=== PATIENT | female | born 1985 | race Caucasian/White ===

== ENCOUNTER 2022-05-04 17:00 | Inpatient (IN) | payer SELFPAY ==
[~2022-05-04] VITALS: Ht 167.6 cm; Wt 102.6 kg
--- NOTE | 2022-05-04 17:25 | ED Respiratory ---
General Chief Complaint: Respiratory Problems Stated Complaint: SOB Nursing Triage Note: PT TO ED IN WITH C/O PAIN WITH BREATHING, CHEST PRESSURE/HEAVINESS SINCE YESTERDAY. PT REPORTS SHE WAS DX WITH CHF, HAS NOT TAKEN ANY OF HER MEDS IN MONTHS BC SHE CANNOT AFFORD THEM. DENIES SOB, COUGH, FEVER, OR ANY OTHER SX AT THIS TIME. Source: patient Exam Limitations: no limitations (SARA HARLEY APRN) History of Present Illness Date Seen by Provider: May 04, 2022 Time Seen by Provider: 17:24 Initial Comments This is a 37-year-old female who presented to the ER via POV with complaints of shortness of breath, chest pressure and heaviness since yesterday afternoon. States that she was recently discharged from one of the hospitals in [place] a couple months ago with a diagnosis of CHF. States that she is prescribed lisinopril, Lasix, possibly metoprolol but she has not taken any of these medications because she cannot afford them. She does not have a primary care provider stating she cannot afford to have 1 and she just moved to the area. She denies alcohol, illicit drug use although she does appear to be under the influence of something. She does smoke a pack per day of cigarettes, denies marijuana use. Denies any fever, chills, cough, abdominal pain, nausea, vomiting. (SARA HARLEY APRN) Allergies and Home Medications Allergies Coded Allergies: Penicillins (Verified Allergy, Unknown, 05/04/22) Patient Home Medication List Home Medication List Reviewed: Yes (SARA HARLEY APRN) Review of Systems Review of Systems Constitutional: see HPI (SARA HARLEY APRN) Past Panamuj-Psagqo-Iqyvde Hx Patient Social History Tobacco Use?: Yes Tobacco type used: Cigarettes Smoking Status: Current Everyday Smoker Use of E-Cig and/or Vaping dev: No Substance use?: No Alcohol Use?: No Pt feels they are or have been: No (SARA HARLEY APRN) Immunizations Up To Date Influenza Vaccine Up-to-Date: No; Not Current (SARA HARLEY APRN) Past Medical History Surgery/Hospitalization HX: CHF, HTN, ANEMIA (SARA HARLEY APRN) Physical Exam Vital Signs - First Documented 05/04/22 17:03 Pulse 123 Resp 22 B/P (MAP) 173/107 (129) Pulse Ox 96 O2 Delivery Nasal Cannula O2 Flow Rate 2.00 FiO2 94 (ODETTE PRITCHETT MD) Capillary Refill : (SARA HARLEY APRN) Height: '" Weight: lbs. oz. kg; 32.00 BMI Method: General Appearance: WD/WN, no apparent distress Eyes: Bilateral Eye Normal Inspection, Bilateral Eye PERRL, Bilateral Eye EOMI HEENT: PERRL/EOMI, normal ENT inspection, TMs normal, pharynx normal Neck: full range of motion, normal inspection Respiratory: lungs clear, normal breath sounds, no respiratory distress, no accessory muscle use; No respiratory distress Cardiovascular: normal peripheral pulses, regular rate, rhythm, no murmur Gastrointestinal: normal bowel sounds, non tender, soft, no organomegaly Extremities: normal range of motion, normal inspection Neurologic/Psychiatric: no motor/sensory deficits, alert, normal mood/affect, oriented x 3 Skin: normal color, warm/dry (SARA HARLEY APRN) Focused Exam Lactate Level 05/04/22 20:03: Lactic Acid Level 0.87 (ODETTE PRITCHETT MD) Lactic Acid Level Laboratory Tests Test 05/04/22 20:03 Lactic Acid Level 0.87 MMOL/L (0.50-2.00) (ODETTE PRITCHETT MD) Progress/Results/Core Measures Suspected Sepsis SIRS Temperature: Pulse: 123 Respiratory Rate: 22 Laboratory Tests 05/04/22 17:05: White Blood Count 9.7 Blood Pressure 173 /107 Mean: 129 Laboratory Tests 05/04/22 17:05: Creatinine 0.62, INR Comment 1.0, Platelet Count 348, Total Bilirubin 1.6H (SARA HARLEY APRN) Results/Orders Lab Results Laboratory Tests Test 05/04/22 17:05 05/04/22 18:30 05/04/22 20:03 Range/Units White Blood Count 9.7 4.3-11.0 10^3/uL Red Blood Count 4.78 3.80-5.11 10^6/uL Hemoglobin 9.3 L 11.5-16.0 g/dL Hematocrit 32 L 35-52 % Mean Corpuscular Volume 68 L 80-99 fL Mean Corpuscular Hemoglobin 20 L 25-34 pg Mean Corpuscular Hemoglobin Concent 29 L 32-36 g/dL Red Cell Distribution Width 18.4 H 10.0-14.5 % Platelet Count 348 130-400 10^3/uL Mean Platelet Volume 9.5 9.0-12.2 fL Immature Granulocyte % (Auto) 0 % Neutrophils (%) (Auto) 90 H 42-75 % Lymphocytes (%) (Auto) 4 L 12-44 % Monocytes (%) (Auto) 4 0-12 % Eosinophils (%) (Auto) 1 0-10 % Basophils (%) (Auto) 1 0-10 % Neutrophils # (Auto) 8.7 H 1.8-7.8 10^3/uL Lymphocytes # (Auto) 0.4 L 1.0-4.0 10^3/uL Monocytes # (Auto) 0.4 0.0-1.0 10^3/uL Eosinophils # (Auto) 0.1 0.0-0.3 10^3/uL Basophils # (Auto) 0.1 0.0-0.1 10^3/uL Immature Granulocyte # (Auto) 0.0 0.0-0.1 10^3/uL Neutrophils % (Manual) 89 % Lymphocytes % (Manual) 7 % Monocytes % (Manual) 2 % Eosinophils % (Manual) 2 % Hypochromasia MARKED Poikilocytosis SLIGHT Microcytosis SLIGHT Prothrombin Time 13.3 12.2-14.7 SEC INR Comment 1.0 0.8-1.4 Activated Partial Thromboplast Time 27 24-35 SEC D-Dimer 0.94 H 0.00-0.49 UG/ML Sodium Level 137 135-145 MMOL/L Potassium Level 3.8 3.6-5.0 MMOL/L Chloride Level 102 98-107 MMOL/L Carbon Dioxide Level 25 21-32 MMOL/L Anion Gap 10 5-14 MMOL/L Blood Urea Nitrogen 9 7-18 MG/DL Creatinine 0.62 0.60-1.30 MG/DL Estimat Glomerular Filtration Rate 117 BUN/Creatinine Ratio 15 Glucose Level 97 70-105 MG/DL Calcium Level 9.2 8.5-10.1 MG/DL Corrected Calcium 9.0 8.5-10.1 MG/DL Magnesium Level 1.9 1.6-2.4 MG/DL Total Bilirubin 1.6 H 0.1-1.0 MG/DL Aspartate Amino Transf (AST/SGOT) 27 5-34 U/L Alanine Aminotransferase (ALT/SGPT) 32 0-55 U/L Alkaline Phosphatase 122 40-136 U/L Total Creatine Kinase 101 29-168 U/L Creatine Kinase MB 2.9 <6.6 NG/ML Myoglobin 54.3 10.0-92.0 NG/ML Troponin I 0.059 H 0.044 H <0.028 NG/ML B-Type Natriuretic Peptide 376.7 H <100.0 PG/ML Total Protein 7.4 6.4-8.2 GM/DL Albumin 4.3 3.2-4.5 GM/DL Lipase 4 L 8-78 U/L Urine Color YELLOW Urine Clarity CLEAR Urine pH 5.5 5-9 Urine Specific [place] 1.025 H 1.016-1.022 Urine Protein NEGATIVE NEGATIVE Urine Glucose (UA) NEGATIVE NEGATIVE Urine Ketones NEGATIVE NEGATIVE Urine Nitrite NEGATIVE NEGATIVE Urine Bilirubin NEGATIVE NEGATIVE Urine Urobilinogen 0.2 < = 1.0 MG/DL Urine Leukocyte Esterase 3+ H NEGATIVE Urine RBC (Auto) TRACE-I H NEGATIVE Urine RBC 2-5 H /HPF Urine WBC 10-25 H /HPF Urine Squamous Epithelial Cells 2-5 /HPF Urine Crystals NONE /LPF Urine Bacteria FEW H /HPF Urine Casts NONE /LPF Urine Mucus NEGATIVE /LPF Urine Trichomonas FEW H /HPF Urine Culture Indicated YES Urine Opiates Screen NEGATIVE NEGATIVE Urine Oxycodone Screen NEGATIVE NEGATIVE Urine Methadone Screen NEGATIVE NEGATIVE Urine Propoxyphene Screen NEGATIVE NEGATIVE Urine Barbiturates Screen NEGATIVE NEGATIVE Ur Tricyclic Antidepressants Screen NEGATIVE NEGATIVE Urine Phencyclidine Screen NEGATIVE NEGATIVE Urine Amphetamines Screen POSITIVE H NEGATIVE Urine Methamphetamines Screen POSITIVE H NEGATIVE Urine Benzodiazepines Screen NEGATIVE NEGATIVE Urine Cocaine Screen NEGATIVE NEGATIVE Urine Cannabinoids Screen NEGATIVE NEGATIVE Lactic Acid Level 0.87 0.50-2.00 MMOL/L (ODETTE PRITCHETT MD) My Orders Orders - ODETTE PRITCHETT MD Ed Admission (Communication) (05/04/22 20:56) (ODETTE PRITCHETT MD) Medications Given in ED Current Medications Medications Dose Ordered Sig/Kathia Route Start Time Stop Time Status Last Admin Dose Admin Aspirin 324 mg ONCE ONCE PO 05/04/22 17:30 05/04/22 17:31 DC 05/04/22 17:33 324 MG Cefepime HCl 1000 mg/Sodium Chloride 50 ml @ 100 mls/hr ONCE ONCE IV 05/04/22 20:00 05/04/22 20:29 DC 05/04/22 20:33 100 MLS/HR Furosemide 20 mg ONCE ONCE IVP 05/04/22 18:45 05/04/22 18:46 DC 05/04/22 18:47 20 MG Iohexol 100 ml ONCE ONCE IV 05/04/22 19:15 05/04/22 19:16 DC 05/04/22 19:36 87 ML Nitroglycerin 0.4 mg UD PRN SL 05/04/22 17:30 05/04/22 18:13 DC 05/04/22 18:12 0.4 MG Sodium Chloride 100 ml ONCE ONCE IV 05/04/22 19:15 05/04/22 19:16 DC 05/04/22 19:36 70 ML (ODETTE PRITCHETT MD) Vital Signs/I&O 05/04/22 05/04/22 17:03 17:03 Pulse 123 Resp 22 B/P (MAP) 173/107 (129) Pulse Ox 96 O2 Delivery Nasal Cannula Room Air O2 Flow Rate 2.00 FiO2 94 (ODETTE PRITCHETT MD) Vital Signs/I&O Capillary Refill : (SARA HARLEY APRN) Blood Pressure Mean: 129 Progress Note : Progress Note Patient examined and in no acute distress. Placed her on oxygen at 2 L/min via nasal cannula for comfort. Initiated cardiac work-up. Her EKG is negative for any acute ischemic changes. She is sinus tach in the 120s. Requested something for pain at this time, orders placed for aspirin 324 mg and nitro tabs x3 per protocol. Will reevaluate. Labs reviewed, anemic with Hgb-9.3. CXR negative for cardiomegaly and pneumonia. Noted to have elevated D-dimer at 0.94, orders placed for CT angio chest due to elevated D-dimer and tachycardia with a rate of 120s. She has a repeat troponin in 3 hours as her troponin is slightly positive at 0.059, will see if she is trending up. BNP-376 slightly elevated Resting more comfortably after morphine 4 mg IV. Given Lasix 20mg IVP. 1999: CT angio resulted, negative for PE. She does have suspicion for left uppe r lobe pneumonia, will go ahead and obtain lactic and blood cultures and order 1 g of cefepime at this time. Case reviewed with Dr. Pritchett he assumed care at this time. Will give Tylenol p.o. for her headache, currently awaiting repeat troponin results. (SARA HARLEY MEDICAL ASSEMBLER) Progress Note : Progress Note 1999: Assumed care of the patient pending troponin and lactic acid. We will initiate cefepime 1 g IV after second blood culture. Anticipate admission. 2051: I did discuss the case with Dr. Stallworth. Patient follows with the [facility] in [place] but is transitioning to the one in [place] since she just moved here this week. Dr. Stallworth is on-call for [facility]. She accepts patient for admission, inpatient status for treatment for pneumonia. She is requesting consult with Dr Ward. 2058: I have discussed the case with Dr Ward. No new orders. He will see her in consult. Admit, inpatient status. Patient agrees to plan. (ODETTE PRITCHETT MD) ECG Initial ECG Impression Date: May 04, 2022 Initial ECG Impression Time: 17:09 Initial ECG Rate: 120 Initial ECG Rhythm: S.Tach Initial ECG Intervals: Normal Initial ECG Impression: Normal Initial ECG Comparisson: No Previous ECG Available (SARA HARLEY MEDICAL ASSEMBLER) Diagnostic Imaging Diagonstic Imaging: Xray Plain Films/CT/US/NM/MRI: chest Comments [facility] [place], [place] NAME: YANDY BOOKER [facility] REC#: [id number] PT STATUS: REG ER : 1985 PHYSICIAN: SARA HARLEY MEDICAL ASSEMBLER ADMIT DATE: 05/04/22/ER Signed Date of Exam:05/04/22 CHEST 1 VIEW, AP/PA ONLY EXAM: CHEST 1 VIEW, AP/PA ONLY INDICATION: Chest pain. COMPARISON: None. FINDINGS: Normal heart size and central pulmonary vascularity. No focal pulmonary opacity. No pleural effusion or pneumothorax. No acute osseous findings. IMPRESSION: No acute cardiopulmonary findings. Dictated by: Dictated on workstation # [id number] Dict: 05/04/22 1739 Trans: 05/04/22 1814 [id number] Interpreted by: OG KINSEY MD Electronically signed by: OG KINSEY MD 05/04/221813 Reviewed: Reviewed by Me Comments [facility] [place], [place] NAME: YANDY BOKOER [facility] REC#: [id number] PT STATUS: REG ER : 1985 PHYSICIAN: SARA HARLEY APRN ADMIT DATE: 05/04/22/ER Signed Date of Exam:05/04/22 CT ANGIO CHEST W PROCEDURE: CT angiography of the chest with contrast. TECHNIQUE: Multiple contiguous axial images were obtained through the chest after uneventful bolus administration of intravenous contrast. 3D reconstructed CTA MIP acquisitions were also performed. Auto Exposure Controls were utilized during the CT exam to meet ALARA standards for radiation dose reduction. INDICATION: Chest pain, elevated D-dimer. FINDINGS: There is some patchy alveolar infiltrate in the left upper lobe. Lungs are otherwise clear. There is a left pleural effusion layering out to a depth of 1 cm and a right pleural effusion layering out to a depth of 4 mm. There are no appreciable pulmonary emboli. There is no right ventricular strain. Thoracic aorta appears normal. There is no hilar or mediastinal lymphadenopathy. IMPRESSION: Small bilateral pleural effusions. Left upper lobe infiltrate suspicious for pneumonia. Dictated by: Dictated on workstation # [id number] Dict: 05/04/221945 Trans: 05/04/221951 [facility] [id number] Interpreted by: ODETTE ANDERSON MD Electronically signed by: ODETTE ANDERSON MD 05/04/221951 (SARA HARLEY APRN) Departure Communication (Admissions) Time/Spoke to Admitting Phy: 20:52 Time/Spoke to Consulting Phy: 20:59 (ODETTE PRITCHETT MD) Impression Primary Impression: Left upper lobe pneumonia Qualified Codes: J18.9 - Pneumonia, unspecified organism Additional Impression: Chest pain Qualified Codes: R07.9 - Chest pain, unspecified Disposition: ADMITTED INPATIENT Condition: Stable Admissions Decision to Admit Reason: Admit from ER (General) Decision to Admit/Date: May 04, 2022 Time/Decision to Admit Time: 20:52 (ODETTE PRITCHETT MD) SARA HARLEY APRN May 04, 2022 17:24 ODETTE PRITCHETT MD May 04, 2022 21:01
[2022-05-04 17:27] LABS: BASOPHILS # (AUTO) 0.1 10^3/uL (0.0-0.1); BASOPHILS % (AUTO) 1 % (0-10); EOSINOPHILS # (AUTO) 0.1 10^3/uL (0.0-0.3); EOSINOPHILS % (AUTO) 1 % (0-10); HEMATOCRIT 32 % (35-52); HEMOGLOBIN 9.3 g/dL (11.5-16.0); LYMPHOCYTES # (AUTO) 0.4 10^3/uL (1.0-4.0); LYMPHOCYTES % (AUTO) 4 % (12-44); MEAN CORPUSCULAR HEMOGLOBIN 20 pg (25-34); MEAN CORPUSCULAR HGB CONC 29 g/dL (32-36); MEAN CORPUSCULAR VOLUME 68 fL (80-99); MEAN PLATELET VOLUME 9.5 fL (9.0-12.2); MONOCYTES # (AUTO) 0.4 10^3/uL (0.0-1.0); MONOCYTES % (AUTO) 4 % (0-12); NEUTROPHILS # (AUTO) 8.7 10^3/uL (1.8-7.8); NEUTROPHILS % (AUTO) 90 % (42-75); PLATELET COUNT 348 10^3/uL (130-400); WHITE BLOOD COUNT 9.7 10^3/uL (4.3-11.0)
[2022-05-04] MEDS ORDERED: ASPIRIN 81 MG CHEW (CHILDREN'S ASA) PO ONE (17:30)
[2022-05-04] MEDS: NITROGLYCERIN 0.4 MG SL TABS BTL 25'S SL PRN ×3 (17:34→18:12)
[2022-05-04 17:39] LABS: ALBUMIN 4.3 GM/DL (3.2-4.5); POTASSIUM 3.8 MMOL/L (3.6-5.0)
[2022-05-04 17:40] LABS: CALCIUM 9.2 MG/DL (8.5-10.1)
[2022-05-04 17:41] LABS: TOTAL PROTEIN 7.4 GM/DL (6.4-8.2)
--- NOTE | 2022-05-04 17:41 | Diagnostic Imaging Report ---
EXAM: CHEST 1 VIEW, AP/PA ONLY INDICATION: Chest pain. COMPARISON: None. FINDINGS: Normal heart size and central pulmonary vascularity. No focal pulmonary opacity. No pleural effusion or pneumothorax. No acute osseous findings. IMPRESSION: No acute cardiopulmonary findings. Dictated by: Dictated on workstation # [id number]
[2022-05-04 17:43] LABS: BILIRUBIN,TOTAL 1.6 MG/DL (0.1-1.0)
[2022-05-04 17:45] LABS: CREATININE SERUM 0.62 MG/DL (0.60-1.30)
[2022-05-04 17:48] LABS: MAGNESIUM 1.9 MG/DL (1.6-2.4)
[2022-05-04 17:56] LABS: CREATINE KINASE MB 2.9 NG/ML (<6.6)
[2022-05-04 18:04] LABS: PROTHROMBIN TIME PATIENT 13.3 SEC (12.2-14.7)
[2022-05-04 18:07] LABS: EOSINOPHILS % (MANUAL) 2 %; HYPOCHROMASIA MARKED; LYMPHOCYTES % (MANUAL) 7 %; MICROCYTOSIS SLIGHT; MONOCYTES % (MANUAL) 2 %; NEUTROPHILS % (MANUAL) 89 %; POIKILOCYTOSIS SLIGHT
[2022-05-04] MEDS ORDERED: morphine INJ 10 MG/ML 1ML (SYR OR VIAL) IVP STA (18:35)
[2022-05-04 18:42] LABS: BILIRUBIN,URINE NEGATIVE (NEGATIVE); CLARITY,URINE CLEAR; COLOR,URINE YELLOW; GLUCOSE, URINE (UA) NEGATIVE (NEGATIVE); KETONES,URINE NEGATIVE (NEGATIVE); LEUKOCYTE ESTERASE ,URINE 3+ (NEGATIVE); NITRITE,URINE NEGATIVE (NEGATIVE); PH,URINE 5.5 (5-9); PROTEIN,URINE NEGATIVE (NEGATIVE)
[2022-05-04] MEDS ORDERED: FUROSEMIDE 40 MG/4 ML INJ (LASIX) IVP ONE (18:45)
[2022-05-04 19:03] LABS: BACTERIA,URINE FEW /HPF; TRICHOMONAS,URINE FEW /HPF
[2022-05-04 19:04] LABS: AMPHETAMINE SCREEN, URINE POSITIVE (NEGATIVE); BARBITURATE SCREEN URINE NEGATIVE (NEGATIVE); BENZODIAZEPINES SCREEN URINE NEGATIVE (NEGATIVE); CANNABINOID SCREEN, URINE NEGATIVE (NEGATIVE); COCAINE SCREEN URINE NEGATIVE (NEGATIVE); METHADONE STAT NEGATIVE (NEGATIVE); OPIATE SCREEN URINE NEGATIVE (NEGATIVE); OXYCODONE STAT NEGATIVE (NEGATIVE); PROPOXYPHENE STAT NEGATIVE (NEGATIVE); TRICYCLIC ANTIDEPRESSANTS SCRE NEGATIVE (NEGATIVE)
[2022-05-04] MEDS ORDERED: NS 100 ML (IVPB) BAG IV ONE (19:15)
[2022-05-04] MEDS ORDERED: IOHEXOL 350 MG/ML 100 ML (OMNIPAQUE 350) VIAL IV ONE (19:15)
--- NOTE | 2022-05-04 19:50 | Diagnostic Imaging Report ---
PROCEDURE: CT angiography of the chest with contrast. TECHNIQUE: Multiple contiguous axial images were obtained through the chest after uneventful bolus administration of intravenous contrast. 3D reconstructed CTA MIP acquisitions were also performed. Auto Exposure Controls were utilized during the CT exam to meet ALARA standards for radiation dose reduction. INDICATION: Chest pain, elevated D-dimer. FINDINGS: There is some patchy alveolar infiltrate in the left upper lobe. Lungs are otherwise clear. There is a left pleural effusion layering out to a depth of 1 cm and a right pleural effusion layering out to a depth of 4 mm. There are no appreciable pulmonary emboli. There is no right ventricular strain. Thoracic aorta appears normal. There is no hilar or mediastinal lymphadenopathy. IMPRESSION: Small bilateral pleural effusions. Left upper lobe infiltrate suspicious for pneumonia. Dictated by: Dictated on workstation # [id number]
[2022-05-04] MEDS ORDERED: CEFEPIME INJECTION 1,000 MG in NS (IVPB) 50 ML IV ONE (20:00)
[2022-05-04] MEDS ORDERED: ACETAMINOPHEN 500 MG TAB (TYLENOL) PO STA (21:01)
[2022-05-04] MEDS ORDERED: MELATONIN 3 MG TABLET PO PRN (21:15)
[2022-05-04] MEDS ORDERED: LACTULOSE SYRUP 10GM/15ML (ENULOSE) 30ML UDC PO PRN (21:15)
[2022-05-04] MEDS ORDERED: ONDANSETRON 4 MG/2 ML (SDV) Z0FRAN IV PRN (21:15)
[2022-05-04] MEDS ORDERED: diphenhydrAMINE 50 MG/ML INJ (BENADRYL) IVP PRN (21:15)
[2022-05-04] MEDS ORDERED: morphine IMMEDIATE RELEASE 15 MG TABLET PO PRN (21:15)
[2022-05-04] MEDS ORDERED: polyethylene glycoL POWDER 17 GM (MIRALAX) PACK PO PRN (21:15)
[2022-05-04] MEDS ORDERED: ONDANSETRON 4 MG (ZOFRAN) ORAL DISSOLVE TAB PO PRN (21:15)
[2022-05-04] MEDS ORDERED: LORazepam INJ 2 MG/ML (ATIVAN) VIAL IVP PRN (21:15)
[2022-05-04] MEDS ORDERED: CALCIUM CARBONATE 500 MG (TUMS) TAB.CHEW PO PRN (21:15)
[2022-05-04] MEDS ORDERED: MILK OF MAGNESIA 400 MG/5 ML 30 ML UDC PO PRN (21:15)
[2022-05-04] MEDS ORDERED: BISACODYL 10 MG SUPP (DULCOLAX) PR PRN (21:15)
[2022-05-04] MEDS ORDERED: ZIPRASIDONE 20 MG INJ (GEODON) VIAL IM PRN (21:15)
[2022-05-04] MEDS ORDERED: ACETAMINOPHEN 325 MG TABLET PO PRN (21:15)
[2022-05-04] MEDS ORDERED: HYDROmorphone 2 MG/ML VIAL (DILAUDID) IV PRN (21:15)
[2022-05-04] MEDS ORDERED: WATER (STERILE) FOR INJ 10 ML BTL INJ SCH (21:15)
[2022-05-04] MEDS ORDERED: cloNIDine 0.1 MG (CATAPRES) TAB PO PRN (21:15)
[2022-05-04] MEDS ORDERED: ANTACID SUSP 30 ML UDC (MYLANTA) PO PRN (21:15)
[2022-05-04] MEDS ORDERED: diphenhydrAMINE 25 MG TAB (BENADRYL) PO PRN (21:15)
[2022-05-04] MEDS ORDERED: NS IV 1000 ML 1,000 ML ONE (21:21)
[2022-05-04 21:24] VITALS: BP 156/92
[2022-05-04] MEDS ORDERED: RT-ALBUTEROL/IPRATROPIUM 3 ML (DUONEB) VIAL ONE (21:42)
[2022-05-04] MEDS: RT-ALBUTEROL/IPRATROPIUM 3 ML (DUONEB) VIAL INH PRN (21:47)
[2022-05-04] MEDS: ENOXAPARIN 40 MG/0.4 ML (LOVENOX) SYR SC SCH (22:00)
[2022-05-04] MEDS: NS IV 1000 ML 1,000 ML IV SCH (22:01)
[2022-05-04 23:20] VITALS: BP 121/71
[2022-05-05] MEDS: CEFEPIME INJECTION 1,000 MG in NS (IVPB) 50 ML IV SCH ×4 (02:14→20:06)
[2022-05-05 03:53] VITALS: BP 107/61
[2022-05-05] MEDS: LORazepam 0.5 MG (ATIVAN) TABLET PO PRN (04:59)
[2022-05-05] MEDS: RT-ALBUTEROL/IPRATROPIUM 3 ML (DUONEB) VIAL INH PRN (05:12)
--- NOTE | 2022-05-05 05:17 | History & Physical-Hospitalist ---
History of Present Illness HPI/Chief Complaint CC: Dyspnea HPI: This is a 37yoWF [facility] patient meth user who presented to ER with dyspnea who apparently had been at [facility] for similar issues and dx with CHF and then she came to our ER after she was released from [facility]. PNA dx and patient was placed on Cefepime. Currently she is sleeping and withdrawal from meth noted. Source: RN/MD, old records Exam Limitations: other (sleeping) Date Seen 05/05/22 Time Seen by a Provider: 09:30 Attending Physician No,Local Physician PCP Admitting Physician: Marcela Stallworth DO Attending Physician: Marcela Stallworth DO Referring Physician Date of Admission May 04, 2022 at 20:58 Home Medications & Allergies Home Medications Reviewed patient Home Medication Reconciliation performed by pharmacy medication reconciliations geotechnicial properties technician and/or nursing. Patients Allergies have been reviewed. Allergies Allergies Coded Allergies Penicillins (Verified Allergy, Unknown, 05/04/22) Past Tdwrscc-Pokqyt-Vncyfn Hx Patient Social History Marrital Status: single Employed/Student: unemployed Tobacco Use?: Yes Tobacco type used: Cigarettes Smoking Status: Current Everyday Smoker Smokeless Tobacco Frequency: Never a User Use of E-Cig and/or Vaping dev: No Use of E-Cig and/or Vaping Russell: Never a User Substance use?: No Substance type: Amphetamines, Methamphetamine, Nicotine Substance frequency: Once in a while Alcohol Use?: No Pt feels they are or have been: No Current Status status: No Advance Directives: No Communicates: Verbally Primary Language: Rwandan Preferred Spoken Language: Rwandan Is interpretation needed?: No Past Medical History Chronic Edema/Swelling Review of Systems Constitutional: see HPI Physical Exam Physical Exam Vital Signs Vital Signs - First Documented 05/04/22 05/04/22 17:03 21:24 Temp 36.8 Pulse 123 Resp 22 B/P (MAP) 173/107 (129) Pulse Ox 96 O2 Delivery Nasal Cannula O2 Flow Rate 2.00 FiO2 94 Capillary Refill : Height, Weight, BMI Height: '" Weight: lbs. oz. kg; 36.52 BMI Method: General Appearance: No Apparent Distress, Chronically ill Respiratory: Lungs Clear, Normal Breath Sounds Cardiovascular: Regular Rate, Rhythm Neurologic/Psychiatric: Alert, Oriented x3, No Motor/Sensory Deficits, Normal Mood/Affect Results Results/Procedures Labs Laboratory Tests 05/04/22 17:05 05/05/22 05:40 Patient resulted labs reviewed. Assessment/Plan Admission Diagnosis Assessment: Dyspnea CHF diastolic dysfunction NSTEMI presumed Type II PNA Meth use Hypoxia Plan: Monitor closely O2 Withdrawal management from meth Admission Status: Inpatient Order (span 2 midnights) Reason for Inpatient Admission: chf and PNA Diagnosis/Problems Diagnosis/Problems (1) Left upper lobe pneumonia Qualifiers: Pneumonia type: due to unspecified organism Qualified Codes: J18.9 - Pneumonia, unspecified organism (2) Chest pain Qualifiers: Chest pain type: unspecified Qualified Codes: R07.9 - Chest pain, unspecified MARCELA STALLWORTH DO May 05, 2022 05:17
[2022-05-05 05:51] LABS: BASOPHILS % (AUTO) 1 % (0-10); HEMATOCRIT 30 % (35-52); HEMOGLOBIN 8.6 g/dL (11.5-16.0); MEAN CORPUSCULAR HEMOGLOBIN 19 pg (25-34); MEAN CORPUSCULAR HGB CONC 29 g/dL (32-36); MEAN CORPUSCULAR VOLUME 68 fL (80-99)
[2022-05-05 05:53] LABS: EOSINOPHILS # (AUTO) 0.2 10^3/uL (0.0-0.3); EOSINOPHILS % (AUTO) 4 % (0-10); LYMPHOCYTES # (AUTO) 0.5 10^3/uL (1.0-4.0); LYMPHOCYTES % (AUTO) 9 % (12-44); MEAN PLATELET VOLUME 9.6 fL (9.0-12.2); MONOCYTES # (AUTO) 0.4 10^3/uL (0.0-1.0); MONOCYTES % (AUTO) 7 % (0-12); NEUTROPHILS # (AUTO) 4.1 10^3/uL (1.8-7.8); NEUTROPHILS % (AUTO) 78 % (42-75); PLATELET COUNT 233 10^3/uL (130-400); WHITE BLOOD COUNT 5.2 10^3/uL (4.3-11.0)
[2022-05-05 06:05] LABS: POTASSIUM 4.1 MMOL/L (3.6-5.0)
[2022-05-05 06:06] LABS: ALBUMIN 3.9 GM/DL (3.2-4.5)
[2022-05-05 06:07] LABS: CALCIUM 9.3 MG/DL (8.5-10.1)
[2022-05-05 06:08] LABS: TOTAL PROTEIN 6.8 GM/DL (6.4-8.2)
[2022-05-05 06:10] LABS: BILIRUBIN,TOTAL 1.5 MG/DL (0.1-1.0)
[2022-05-05 06:12] LABS: CREATININE SERUM 0.67 MG/DL (0.60-1.30)
[2022-05-05 07:35] VITALS: BP 121/67
[2022-05-05] MEDS ORDERED: RT-ALBUTEROL/IPRATROPIUM 3 ML (DUONEB) VIAL INH SCH (08:00)
[2022-05-05] MEDS: DOCUSATE SODIUM 100 MG (COLACE) CAP PO SCH ×2 (09:29→22:41)
[2022-05-05] MEDS: SENNOSIDES 8.6 MG (SENOKOT) TAB PO SCH ×2 (09:29→22:41)
[2022-05-05] MEDS: NS IV 1000 ML 1,000 ML IV SCH (10:31)
[2022-05-05] MEDS: RT-ALBUTEROL/IPRATROPIUM 3 ML (DUONEB) VIAL INH SCH ×3 (11:22→21:16)
[2022-05-05 11:47] VITALS: BP 128/65
--- NOTE | 2022-05-05 11:47 | Consultation-Cardiology ---
HPI-Cardiology Cardiology Consultation: Date of Consultation 05/05/22 Time Seen by a Provider: 11:15 Date of Admission Attending Physician Kate,Local Physician Admitting Physician Admitting Physician: Marcela Stallworth DO Attending Physician: Marcela Stallworth DO Consulting Physician CAREY CEBALLOS MD, MA, FACP, FACC, FSCAI, CCDS Physician requesting consult: Dr Stallworth HPI: Chief Complaint: Chest discomfort and shortness of breath 37 yo woman with med hx as noted below who was admitted to Dr Stallworth on the evening of 05/04/22 with shortness of breath and vague chest discomfort and gen malaise and weakness. Notes symptoms present for approx 48 hours. Reports meth use within 48 hours. Chest discomfort is a dull pressure involving all chest that has been present continuously for several days and that does not have aggravating or relieving factors. It is associated with shortness of breath. She has had these symptoms intermittently, lasting several days, for several months. Reports a recent hosp at [facility] with these symptoms. States was diagnosed with CHF, place on meds, but she has been noncompliant. Reports a chronic h/o smoking cigs Review of Systems-Cardiology Review of Systems Constitutional: malaise, tiredness; No weight loss, No weight gain Eyes: No vision change Ears/Nose/Throat: No ear discharge, No nasal drainage, No recent hearing loss Respiratory: As described under HPI Cardiovascular: As described under HPI Gastrointestinal: As described under HPI Genitourinary: No dysuria, No hematuria, No urine frequency changes Musculoskeletal: No back pain, No joint pain Skin: No rash, No ulcerations Psychiatric/Neurological: No seizure, No focal weakness, No syncope Hematologic: bleeding abnormalities (reports a chronic h/o heavy menses; no other h/o bleeding issues) ABB-Tyeyqq-Adbsst Hx Patient Social History Smoking Status: Current Everyday Smoker Have you traveled recently?: No Alcohol Use?: No Substance type: Amphetamines, Methamphetamine, Nicotine Pt feels they are or have been: No Tobacco type used: Cigarettes Past Medical History PMH As described under Assessment. Family Medical History Family Medical History: Reports father had CABG at age less than 60. A brother has had a cardiac pacemaker placement Allergies and Home Medications Allergies Coded Allergies: Penicillins (Verified Allergy, Unknown, 05/04/22) Patient Home Medication List Home Medication List Reviewed: Yes Physical Exam-Cardiology Physical Exam Vital Signs/I&O 05/05/22 05/05/22 05/05/22 05/05/22 01:00 03:53 05:12 07:00 Temp 36.3 Pulse 109 110 108 Resp 16 B/P (MAP) 107/61 (76) Pulse Ox 97 95 O2 Delivery Nasal Cannula Nasal Cannula O2 Flow Rate 2.00 4.00 05/05/22 05/05/22 05/05/22 07:35 08:00 11:00 Temp 37.1 Pulse 102 Resp 16 B/P (MAP) 121/67 (85) Pulse Ox 99 O2 Delivery Nasal Cannula Nasal Cannula Nasal Cannula O2 Flow Rate 4.00 2.00 2.00 05/05/22 00:00 Intake Total 50 ml Balance 50 ml Capillary Refill : Constitutional: AAO x 3, well-developed, well-nourished, other (moderately short of breath at exam on 05/05/22) HEENT: PERRL, EOMI, hearing is well preserved Neck: carotid pulses are 2 + bilaterally, with good upstrokes Respiratory: No accessory muscle use; other (basal coarse and fine crackles, exp wheezes) Cardiovascular: regular rate-rhythm, S1 and S2, systolic murmur (soft CHASITY at card base) Gastrointestinal: No tender; soft; No guarding, No rebound; audible bowel sounds Extremities: No clubbing, No cyanosis, No significant edema Neurologic/Psychiatric: oriented x 3, other (moves all limbs equally) Skin: No rash on exposed areas, No ulcerations on exposed areas Data Review Labs Laboratory Tests 05/04/22 17:05: White Blood Count 9.7, Red Blood Count 4.78, Hemoglobin 9.3L, Hematocrit 32L, Mean Corpuscular Volume 68L, Mean Corpuscular Hemoglobin 20L, Mean Corpuscular Hemoglobin Concent 29L, Red Cell Distribution Width 18.4H, Platelet Count 348, Mean Platelet Volume 9.5, Immature Granulocyte % (Auto) 0, Neutrophils (%) (Auto) 90H, Lymphocytes (%) (Auto) 4L, Monocytes (%) (Auto) 4, Eosinophils (%) (Auto) 1, Basophils (%) (Auto) 1, Neutrophils # (Auto) 8.7H, Lymphocytes # (Auto) 0.4L, Monocytes # (Auto) 0.4, Eosinophils # (Auto) 0.1, Basophils # (Auto) 0.1, Immature Granulocyte # (Auto) 0.0, Neutrophils % (Manual) 89, Lymphocytes % (Manual) 7, Monocytes % (Manual) 2, Eosinophils % (Manual) 2, Hypochromasia MARKED, Poikilocytosis SLIGHT, Microcytosis SLIGHT, Prothrombin Time 13.3, INR Comment 1.0, Activated Partial Thromboplast Time 27, D-Dimer 0.94H, Sodium Level 137, Potassium Level 3.8, Chloride Level 102, Carbon Dioxide Level 25, Anion Gap 10, Blood Urea Nitrogen 9, Creatinine 0.62, Estimat Glomerular Filtration Rate 117, BUN/Creatinine Ratio 15, Glucose Level 97, Calcium Level 9.2, Corrected Calcium 9.0, Magnesium Level 1.9, Total Bilirubin 1.6H, Aspartate Amino Transf (AST/SGOT) 27, Alanine Aminotransferase (ALT/SGPT) 32, Alkaline Phosphatase 122, Total Creatine Kinase 101, Creatine Kinase MB 2.9, Myoglobin 54.3, Troponin I 0.059H, B-Type Natriuretic Peptide 376.7H, Total Protein 7.4, Albumin 4.3, Lipase 4L 05/04/22 18:30: Urine Color YELLOW, Urine Clarity CLEAR, Urine pH 5.5, Urine Specific Alsen 1.025H, Urine Protein NEGATIVE, Urine Glucose (UA) NEGATIVE, Urine Ketones NEGATIVE, Urine Nitrite NEGATIVE, Urine Bilirubin NEGATIVE, Urine Urobilinogen 0.2, Urine Leukocyte Esterase 3+H, Urine RBC (Auto) TRACE-IH, Urine RBC 2-5H, Urine WBC 10-25H, Urine Squamous Epithelial Cells 2-5, Urine Crystals NONE, Urine Bacteria FEWH, Urine Casts NONE, Urine Mucus NEGATIVE, Urine Trichomonas FEWH, Urine Culture Indicated YES, Urine Opiates Screen NEGATIVE, Urine Oxycodone Screen NEGATIVE, Urine Methadone Screen NEGATIVE, Urine Propoxyphene Screen NEGATIVE, Urine Barbiturates Screen NEGATIVE, Ur Tricyclic Antide pressants Screen NEGATIVE, Urine Phencyclidine Screen NEGATIVE, Urine Amphetamines Screen POSITIVEH, Urine Methamphetamines Screen POSITIVEH, Urine Benzodiazepines Screen NEGATIVE, Urine Cocaine Screen NEGATIVE, Urine Cannabinoids Screen NEGATIVE 05/04/22 20:03: Troponin I 0.044H, Lactic Acid Level 0.87 05/05/22 05:40: White Blood Count 5.2, Red Blood Count 4.46, Hemoglobin 8.6L, Hematocrit 30L, Mean Corpuscular Volume 68L, Mean Corpuscular Hemoglobin 19L, Mean Corpuscular Hemoglobin Concent 29L, Red Cell Distribution Width 18.6H, Platelet Count 233, Mean Platelet Volume 9.6, Immature Granulocyte % (Auto) 1, Neutrophils (%) (Auto) 78H, Lymphocytes (%) (Auto) 9L, Monocytes (%) (Auto) 7, Eosinophils (%) (Auto) 4, Basophils (%) (Auto) 1, Neutrophils # (Auto) 4.1, Lymphocytes # (Auto) 0.5L, Monocytes # (Auto) 0.4, Eosinophils # (Auto) 0.2, Basophils # (Auto) 0.0, Immature Granulocyte # (Auto) 0.0, Sodium Level 139, Potassium Level 4.1, Chloride Level 104, Carbon Dioxide Level 24, Anion Gap 11, Blood Urea Nitrogen 13, Creatinine 0.67, Estimat Glomerular Filtration Rate 115, BUN/Creatinine Ratio 19, Glucose Level 98, Calcium Level 9.3, Corrected Calcium 9.4, Total Bilirubin 1.5H, Aspartate Amino Transf (AST/SGOT) 20, Alanine Aminotransferase (ALT/SGPT) 27, Alkaline Phosphatase 110, Troponin I 0.050H, Total Protein 6.8, Albumin 3.9, Percent Immature Platelet Fraction 2.6, Triglycerides Level 75, Cholesterol Level 170, LDL Cholesterol Direct 117, VLDL Cholesterol 15, HDL Cholesterol 43 Laboratory Tests 05/04/22 17:05 05/05/22 05:40 A/P-Cardiology Assessment/Admission Diagnosis Ac diastolic CHF - [place] 05/05/22: LVEF 50-55%, PASP 45-50 mmHg, mod MR, mod TR, biatrial enlargement (mild to mod) Mild troponin elevation - likely type 2 DE due to CHF Severe, hypochromic, microcytic anemia of undetermined etiology - managed by Dr Stallworth Pulm HTN - etiology unestablished. Consider L heart failure, pulm disease, JOYA Drug abuse - h/o meth use Chronic tobacco use Discussion and Recomendations * Add diuretics * Add beta-hillary * Aspirin if OK with the Med svce * Monitor labs closely * Tele recommended * Advised off tobacco and drug use * We recommend full eval and treatment of anemia (Dr Stallworth managing) CAREY CEBALLOS MD FACP FACC CCDS May 05, 2022 11:47
[2022-05-05] MEDS ORDERED: PANTOPRAZOLE 40 MG (PROTONIX) TAB PO NR (12:00)
[2022-05-05] MEDS ORDERED: ASPIRIN 81 MG CHEW (CHILDREN'S ASA) PO NR (12:00)
[2022-05-05] MEDS ORDERED: FUROSEMIDE 40 MG/4 ML INJ (LASIX) IVP NR (12:00)
[2022-05-05 16:05] VITALS: BP 113/73
[2022-05-05 19:24] VITALS: BP 128/57
[2022-05-05] MEDS: ENOXAPARIN 40 MG/0.4 ML (LOVENOX) SYR SC SCH (22:41)
[2022-05-06] VITALS (7 sets, daily range): BP systolic 114–141; BP diastolic 67–82
[2022-05-06] MEDS: CEFEPIME INJECTION 1,000 MG in NS (IVPB) 50 ML IV SCH ×4 (01:52→20:10)
[2022-05-06] MEDS: RT-ALBUTEROL/IPRATROPIUM 3 ML (DUONEB) VIAL INH SCH ×4 (02:33→20:20)
[2022-05-06 06:10] LABS: BASOPHILS % (AUTO) 0 % (0-10); EOSINOPHILS # (AUTO) 0.3 10^3/uL (0.0-0.3); EOSINOPHILS % (AUTO) 6 % (0-10); HEMATOCRIT 29 % (35-52); HEMOGLOBIN 8.1 g/dL (11.5-16.0); LYMPHOCYTES # (AUTO) 0.9 10^3/uL (1.0-4.0); LYMPHOCYTES % (AUTO) 21 % (12-44); MEAN CORPUSCULAR HEMOGLOBIN 19 pg (25-34); MEAN CORPUSCULAR HGB CONC 28 g/dL (32-36); MEAN CORPUSCULAR VOLUME 69 fL (80-99); MEAN PLATELET VOLUME 9.6 fL (9.0-12.2); MONOCYTES # (AUTO) 0.5 10^3/uL (0.0-1.0); MONOCYTES % (AUTO) 12 % (0-12); NEUTROPHILS # (AUTO) 2.7 10^3/uL (1.8-7.8); NEUTROPHILS % (AUTO) 61 % (42-75); PLATELET COUNT 252 10^3/uL (130-400); WHITE BLOOD COUNT 4.5 10^3/uL (4.3-11.0)
--- NOTE | 2022-05-06 06:11 | Progress Note - Hospitalist ---
Subjective HPI/CC On Admission Date Seen by Provider: May 06, 2022 Time Seen by Provider: 10:00 CC: Dyspnea HPI: This is a 37yoWF [facility] patient meth user who presented to ER with dyspnea who apparently had been at [facility] for similar issues and dx with CHF and then she came to our ER after she was released from [facility]. PNA dx and patient was placed on Cefepime. Currently she is sleeping and withdrawal from meth noted. Subjective/Events-last exam Improved Cardiology appreciated IV abx maintained Will ambulate today Review of Systems General: Fatigue Pulmonary: Dyspnea, Cough Focused Exam Lactate Level 05/04/22 20:03: Lactic Acid Level 0.87 Objective Exam Vital Signs Vital Signs Date Time Temp Pulse Resp B/P (MAP) Pulse Ox O2 Delivery O2 Flow Rate FiO2 05/06/22 12:44 86 05/06/22 11:11 36.2 20 133/73 (93) 97 Room Air 05/06/22 07:32 2.00 05/04/22 17:03 94 Capillary Refill : General Appearance: No Apparent Distress, WD/WN, Chronically ill Respiratory: No Accessory Muscle Use, No Respiratory Distress, Decreased Breath Sounds Cardiovascular: Regular Rate, Rhythm Neurologic/Psychiatric: Alert, Oriented x3, No Motor/Sensory Deficits, Normal Mood/Affect Results/Procedures Lab Laboratory Tests 05/06/22 05:48 Patient resulted labs reviewed. Assessment/Plan Assessment and Plan Assess & Plan/Chief Complaint Assessment: Dyspnea CHF diastolic dysfunction NSTEMI presumed Type II PNA Meth use Hypoxia Plan: Monitor closely O2 Withdrawal management from meth Ambulate Mucinex Diagnosis/Problems Diagnosis/Problems (1) Left upper lobe pneumonia Qualifiers: Pneumonia type: due to unspecified organism Qualified Codes: J18.9 - Pneumonia, unspecified organism (2) Chest pain Qualifiers: Chest pain type: unspecified Qualified Codes: R07.9 - Chest pain, unspecified MARIJA BAIN DO May 06, 2022 06:11
[2022-05-06 06:40] LABS: ALBUMIN 3.4 GM/DL (3.2-4.5); BILIRUBIN,TOTAL 0.7 MG/DL (0.1-1.0); CALCIUM 8.7 MG/DL (8.5-10.1); CREATININE SERUM 0.61 MG/DL (0.60-1.30); MAGNESIUM 1.8 MG/DL (1.6-2.4); POTASSIUM 3.9 MMOL/L (3.6-5.0); TOTAL PROTEIN 6.2 GM/DL (6.4-8.2)
[2022-05-06] MEDS: ASPIRIN 81 MG CHEW (CHILDREN'S ASA) PO SCH (09:41)
[2022-05-06] MEDS: FUROSEMIDE 40 MG/4 ML INJ (LASIX) IVP SCH (09:41)
[2022-05-06] MEDS: PANTOPRAZOLE 40 MG (PROTONIX) TAB PO SCH (09:41)
[2022-05-06] MEDS: DOCUSATE SODIUM 100 MG (COLACE) CAP PO SCH ×2 (09:42→20:16)
[2022-05-06] MEDS: SENNOSIDES 8.6 MG (SENOKOT) TAB PO SCH ×2 (09:42→20:17)
[2022-05-06] MEDS ORDERED: guaiFENesin (MUCINEX) 600 MG TAB PO NR (10:30)
--- NOTE | 2022-05-06 12:59 | Progress Note - Cardiology ---
Cardiology SOAP Progress Note Subjective: Shortness of breath better but not resolved No cp or palp or syncope No n/v/d No swelling Objective: I&O/Vital Signs 05/06/22 05/06/22 05/06/22 05/06/22 01:00 02:33 04:58 07:00 Temp 36.7 Pulse 85 88 92 Resp 20 B/P (MAP) 125/75 (92) Pulse Ox 90 99 O2 Delivery Nasal Cannula Nasal Cannula O2 Flow Rate 2.00 2.00 05/06/22 05/06/22 05/06/22 05/06/22 07:32 07:42 08:00 11:11 Temp 36.4 36.2 Pulse 96 83 Resp 20 20 B/P (MAP) 139/80 (99) 133/73 (93) Pulse Ox 98 98 97 O2 Delivery Nasal Cannula Room Air Room Air Room Air O2 Flow Rate 2.00 05/06/22 12:44 Pulse 86 05/06/22 00:00 Intake Total 1080 ml Balance 1080 ml Constitutional: AAO x 3, well-developed, well-nourished, other (moderately short of breath at exam on 05/05/22) Respiratory: No accessory muscle use; other (basal coarse and fine crackles, exp wheezes) Cardiovascular: regular rate-rhythm, S1 and S2, systolic murmur (soft CHASITY at card base) Gastrointestional: No tender; soft; No guarding, No rebound; audible bowel sounds Extremities: No clubbing, No cyanosis, No significant edema Neurologic/Psychiatric: oriented x 3, other (moves all limbs equally) Skin: No rash on exposed areas, No ulcerations on exposed areas Results/Procedures: Labs Laboratory Tests 05/06/22 05:48: White Blood Count 4.5, Red Blood Count 4.17, Hemoglobin 8.1L, Hematocrit 29L, Mean Corpuscular Volume 69L, Mean Corpuscular Hemoglobin 19L, Mean Corpuscular Hemoglobin Concent 28L, Red Cell Distribution Width 18.6H, Platelet Count 252, Mean Platelet Volume 9.6, Immature Granulocyte % (Auto) 1, Neutrophils (%) (Auto) 61, Lymphocytes (%) (Auto) 21, Monocytes (%) (Auto) 12, Eosinophils (%) (Auto) 6, Basophils (%) (Auto) 0, Neutrophils # (Auto) 2.7, Lymphocytes # (Auto) 0.9L, Monocytes # (Auto) 0.5, Eosinophils # (Auto) 0.3, Basophils # (Auto) 0.0, Immature Granulocyte # (Auto) 0.0, Sodium Level 140, Potassium Level 3.9, Chloride Level 106, Carbon Dioxide Level 23, Anion Gap 11, Blood Urea Nitrogen 17, Creatinine 0.61, Estimat Glomerular Filtration Rate 117, BUN/Creatinine Ratio 28, Glucose Level 101, Calcium Level 8.7, Corrected Calcium 9.2, Magnesium Level 1.8, Total Bilirubin 0.7, Aspartate Amino Transf (AST/SGOT) 17, Alanine Aminotransferase (ALT/SGPT) 19, Alkaline Phosphatase 86, Total Protein 6.2L, Albumin 3.4, Thyroid Stimulating Hormone (TSH) 1.93 Microbiology 05/04/22 Blood Culture - Preliminary, Resulted No growth 05/04/22 Urine Culture - Preliminary, Resulted Culture In Progress Laboratory Tests 05/04/22 17:05 05/05/22 05:40 05/06/22 05:48 A/P: Assessment: Ac diastolic CHF - Echo on 05/05/22: LVEF 50-55%, PASP 45-50 mmHg, mod MR, mod TR, biatrial enlargement (mild to mod) Mild troponin elevation - likely type 2 OR due to CHF Severe, hypochromic, microcytic anemia of undetermined etiology - managed by Dr Federica Ball HTN - etiology unestablished. Consider L heart failure, pulm disease, JOYA Drug abuse - h/o meth use Chronic tobacco use Plan: * Continue diuretics * Increase beta-hillary * Aspirin if OK with the Med svce * Monitor labs closely * Advised off tobacco and drug use * Consider d/c tomorrow if clinically stable (with advice to f/u as outpt) CAREY CEBALLOS MD [facility] May 06, 2022 12:59
--- NOTE | 2022-05-06 14:54 | Physical Therapy Progress Note ---
Therapy Progress Note Patient refused PT and asked if we could come back later after IV is done. Let patient know we are able to take the IV pole with us can do everything we need to with the IV in. Encouraged patient about the importance of PT to recovery, patient still refused. Will try back tomorrow AM. JACOB CARDOSO PT May 06, 2022 14:54
[2022-05-06] MEDS: guaiFENesin (MUCINEX) 600 MG TAB PO SCH (20:10)
[2022-05-06] MEDS: ENOXAPARIN 40 MG/0.4 ML (LOVENOX) SYR SC SCH (20:17)
[2022-05-07] MEDS: LORazepam 0.5 MG (ATIVAN) TABLET PO PRN (00:49)
[2022-05-07] MEDS: CEFEPIME INJECTION 1,000 MG in NS (IVPB) 50 ML IV SCH ×3 (01:58→12:03)
[2022-05-07] MEDS: RT-ALBUTEROL/IPRATROPIUM 3 ML (DUONEB) VIAL INH SCH ×2 (02:40→06:56)
[2022-05-07 03:29] VITALS: BP 139/82
[2022-05-07 05:42] LABS: BASOPHILS % (AUTO) 1 % (0-10); EOSINOPHILS # (AUTO) 0.3 10^3/uL (0.0-0.3); EOSINOPHILS % (AUTO) 6 % (0-10); HEMATOCRIT 29 % (35-52); HEMOGLOBIN 8.3 g/dL (11.5-16.0); LYMPHOCYTES # (AUTO) 1.3 10^3/uL (1.0-4.0); LYMPHOCYTES % (AUTO) 21 % (12-44); MEAN CORPUSCULAR HEMOGLOBIN 19 pg (25-34); MEAN CORPUSCULAR HGB CONC 28 g/dL (32-36); MEAN CORPUSCULAR VOLUME 69 fL (80-99); MEAN PLATELET VOLUME 9.6 fL (9.0-12.2); MONOCYTES # (AUTO) 0.6 10^3/uL (0.0-1.0); MONOCYTES % (AUTO) 9 % (0-12); NEUTROPHILS # (AUTO) 3.9 10^3/uL (1.8-7.8); NEUTROPHILS % (AUTO) 63 % (42-75); PLATELET COUNT 255 10^3/uL (130-400); WHITE BLOOD COUNT 6.1 10^3/uL (4.3-11.0)
[2022-05-07 06:10] LABS: ALBUMIN 3.5 GM/DL (3.2-4.5); BILIRUBIN,TOTAL 0.6 MG/DL (0.1-1.0); CALCIUM 8.8 MG/DL (8.5-10.1); CREATININE SERUM 0.69 MG/DL (0.60-1.30); TOTAL PROTEIN 6.4 GM/DL (6.4-8.2)
[2022-05-07] MEDS ORDERED: IRON SUCROSE 200 MG/10 ML (VENOFER) VIAL IV ONE (07:00)
[2022-05-07 07:50] VITALS: BP 135/85
[2022-05-07 08:39] VITALS: BP 135/85
[2022-05-07] MEDS: FUROSEMIDE 40 MG/4 ML INJ (LASIX) IVP SCH (09:07)
[2022-05-07] MEDS: ASPIRIN 81 MG CHEW (CHILDREN'S ASA) PO SCH (09:08)
[2022-05-07] MEDS: PANTOPRAZOLE 40 MG (PROTONIX) TAB PO SCH (09:08)
[2022-05-07] MEDS: SENNOSIDES 8.6 MG (SENOKOT) TAB PO SCH (09:08)
[2022-05-07] MEDS: DOCUSATE SODIUM 100 MG (COLACE) CAP PO SCH (09:08)
[2022-05-07] MEDS: guaiFENesin (MUCINEX) 600 MG TAB PO SCH (09:09)
[2022-05-07] MEDS ORDERED: FURO-124 PO (11:26)
[2022-05-07] MEDS ORDERED: ASPI81TA64 PO (11:26)
[2022-05-07] MEDS ORDERED: MTP25TSR PO (11:26)
[2022-05-07] MEDS ORDERED: CEFD300C3 PO (11:26)
--- NOTE | 2022-05-07 11:26 | Discharge Summary ---
Discharge Summary Hospital Course Was the Problem List Reviewed?: Yes Problems/Dx: (1) Left upper lobe pneumonia Qualifiers: Qualified Codes: J18.9 - Pneumonia, unspecified organism (2) Chest pain Qualifiers: Qualified Codes: R07.9 - Chest pain, unspecified Hospital Course Date of Admission: May 04, 2022 at 20:58 Admission Diagnosis : Family Physician/Provider: Kate,Local Physician Date of Discharge: 05/07/22 Discharge Diagnosis: [ ] Hospital Course: Patient had a brief hospital course she was admitted for IV antibiotics and close monitoring by cardiology for congestive heart failure drug-induced methamphetamine use. Currently stabilized and recovered with IV antibiotics. Methamphetamine use and smoking cessation was counseled. She was deemed stable for discharge. Labs and Pending Lab Test: Laboratory Tests 05/07/22 05:15: White Blood Count 6.1, Red Blood Count 4.28, Hemoglobin 8.3L, Hematocrit 29L, Mean Corpuscular Volume 69L, Mean Corpuscular Hemoglobin 19L, Mean Corpuscular Hemoglobin Concent 28L, Red Cell Distribution Width 18.9H, Platelet Count 255, Mean Platelet Volume 9.6, Immature Granulocyte % (Auto) 1, Neutrophils (%) (Auto) 63, Lymphocytes (%) (Auto) 21, Monocytes (%) (Auto) 9, Eosinophils (%) (Auto) 6, Basophils (%) (Auto) 1, Neutrophils # (Auto) 3.9, Lymphocytes # (Auto) 1.3, Monocytes # (Auto) 0.6, Eosinophils # (Auto) 0.3, Basophils # (Auto) 0.0, Immature Granulocyte # (Auto) 0.1, Sodium Level 141, Potassium Level 4.0, Chloride Level 104, Carbon Dioxide Level 27, Anion Gap 10, Blood Urea Nitrogen 16, Creatinine 0.69, Estimat Glomerular Filtration Rate 114, BUN/Creatinine Ratio 23, Glucose Level 98, Calcium Level 8.8, Corrected Calcium 9.2, Total Bilirubin 0.6, Aspartate Amino Transf (AST/SGOT) 19, Alanine Aminotransferase (ALT/SGPT) 17, Alkaline Phosphatase 84, Total Protein 6.4, Albumin 3.5 Microbiology 05/04/22 Blood Culture - Preliminary, Resulted No growth 05/04/22 Urine Culture - Final, Complete 3 or more isolates Home Meds Active No Active Prescriptions or Reported Medications Assessment/Pt Instructions PCP in 1 week Discharge Planning: <30 minutes discharge planning Discharge Instructions Discharge Diet: No Restrictions Discharge Physical Examination Vital Signs Vital Signs Date Time Temp Pulse Resp B/P (MAP) Pulse Ox O2 Delivery O2 Flow Rate FiO2 05/07/22 08:39 36.0 92 95 94 05/07/22 08:00 Room Air 05/07/22 07:50 16 135/85 (102) 05/07/22 06:56 2.00 General Appearance: No Apparent Distress, WD/WN, Chronically ill Respiratory: Lungs Clear Allergies: Coded Allergies: Penicillins (Verified Allergy, Unknown, 05/04/22) Discharge Summary Date of Admission May 04, 2022 at 20:58 Date of Discharge Discharge Date: May 07, 2022 Admission Diagnosis Assessment: Dyspnea CHF diastolic dysfunction NSTEMI presumed Type II PNA Meth use Hypoxia Plan: Monitor closely O2 Withdrawal management from meth Discharge Diagnosis Assessment: Dyspnea CHF diastolic dysfunction NSTEMI presumed Type II PNA Meth use Hypoxia Plan: Monitor closely O2 Withdrawal management from meth Ambulate Mucinex (1) Left upper lobe pneumonia Qualifiers: Qualified Codes: J18.9 - Pneumonia, unspecified organism (2) Chest pain Qualifiers: Qualified Codes: R07.9 - Chest pain, unspecified MARIJA BAIN DO May 07, 2022 11:26
[2022-05-07 11:44] VITALS: BP 142/82
--- NOTE | 2022-05-07 12:58 | Physical Therapy Progress Note ---
Therapy Progress Note Pt. in bed, adamantly declines PT this AM stating she doesn't feel well, states she might throw up. Pt. stated she had been up to bathroom and walked in the hallway, nurse aide confirmed patient has been up ad leigh ann in her room. We will check patient status again 05/09/22 for evaluation as needed. ANDER CHANDLER PT May 07, 2022 12:58
[2022-05-07] MEDS ORDERED: RT-ALBUTEROL/IPRATROPIUM 3 ML (DUONEB) VIAL INH SCH (21:00)
== END 2022-05-07 13:40 | disposition home or self-care (01) | DRG 280 ==
LOC: ER 17:03 → 4TH 20:58
PROVIDERS: ADMIT Internal Medicine; ATTEND Internal Medicine
DX: I11.0 Hypertensive heart disease with heart failure (principal); I21.A1 Myocardial infarction type 2; I50.33 Acute on chronic diastolic (congestive) heart failure; J18.9 Pneumonia, unspecified organism; F15.90 Other stimulant use, unspecified, uncomplicated; R09.02 Hypoxemia; F17.210 Nicotine dependence, cigarettes, uncomplicated; D64.9 Anemia, unspecified; I27.20 Pulmonary hypertension, unspecified; G47.33 Obstructive sleep apnea (adult) (pediatric); Z88.0 Allergy status to penicillin
CPT/HCPCS: 36415; 71045; 71275; 80053; 80061; 80306; 81000; 82550; 82553; 82607; 83540; 83605; 83690; 83735; 83874; 83880; 84443; 84484; 85007; 85025; 85027; 85379; 85610; 85730; 87040; 87088; 93005; 93041; 93306; 94640; 94760